=== PATIENT | male | born 1950 | race Caucasian/White ===

== ENCOUNTER 2017-05-02 13:03 | Outpatient (CLI) | payer MEDICARE, OTHER ==
--- NOTE | 2017-05-02 14:28 | ULT ---
ULTRASOUND WITH DOPPLER DUPLEX VENOUS LOWER EXTREMITY RIGHT: HISTORY: 67-year-old male with right lower extremity swelling and edema. TECHNIQUE: Color flow Doppler, spectral waveform analysis of pulsed Doppler, and loya-scale imaging with janet americo and augmentation, were used to evaluate the right common femoral, femoral, popliteal, posterior tibial, and superficial femoral, veins; and the proximal portions of the profunda femoral and greater saphenous, veins. FINDINGS: There is normal compressibility, demonstration of blood flow by color Doppler and pulsed Doppler, and response to augmentation, in all interrogated veins. IMPRESSION: Negative. No deep vein thrombosis in the right lower extremity. jn POS: [place]
== END 2017-05-02 13:04 | disposition home or self-care (01) ==
LOC: ULT 13:03
PROVIDERS: ATTEND Physical Medicine & Rehabilitation
DX: R60.9 Edema, unspecified (principal)